=== PATIENT | female | born 1985 | race Caucasian/White ===

== ENCOUNTER 2020-11-16 09:46 | Emergency (ER) | payer OTHER ==
[~2020-11-16 09:46] MED LIST: KEFLEX250 MG PO
[2020-11-16 10:19] LABS: BILIRUBIN NEGATIVE (NEGATIVE); BLOOD 3+ Ery/uL (NEGATIVE); CLARITY CLEAR (CLEAR); COLOR YELLOW (YELLOW); GLUCOSE (U) NORMAL (NORMAL); LEUKOCYTES NEGATIVE Leu/uL (NEGATIVE); NITRITE NEGATIVE (NEGATIVE); PROTEIN NEGATIVE (NEGATIVE); SPECIFIC GRAVITY >=1.030 (1.001-1.030); UROBILINOGEN 0.2 mg/dL (0.2-1.0)
[2020-11-16 10:19] LABS: BASOPHIL 0.4 % (0-2); EOSINOPHIL 0.9 % (0-5); HCT 43.5 % (37.0-47.0); HGB 15.1 g/dl (12.5-16.0); LYMPHOCYTE 16.3 % (15-48); MCH 31.1 pg (25.0-31.0); MCHC 34.7 g/dL (32.0-36.0); MCV 89.7 fL (78.0-100.0); MPV 10.8 fL (6.0-9.5); NRBC 0; PLT 269 K/uL (150-400); RBC 4.85 M/uL (4.20-5.40); RDW 12.7 % (11.5-14.0); WBC 7.8 K/uL (4.0-10.5)
[2020-11-16 10:29] LABS: BACTERIA 1+; URINARY RBC 20-50
[2020-11-16 10:35] LABS: ALBUMIN 3.6 g/dL (3.4-5.0); BILIRUBIN - TOTAL 0.5 mg/dL (0.2-1.0); CREATININE 0.63 mg/dL (0.51-0.95); GLOBULIN (CALCULATION) 3.5 g/dL; POTASSIUM 3.5 mmol/L (3.5-5.1); TOTAL PROTEIN 7.1 g/dL (6.4-8.2)
[2020-11-16] MEDS ORDERED: NAPROXEN500 MG PO (12:53)
[2020-11-16] MEDS ORDERED: NORCO 5-325 TA1 EACH PO (12:53)
[2020-11-16] MEDS ORDERED: ZOFRAN4 M1 PO (12:53)
== END 2020-11-16 14:30 | disposition home or self-care (01) ==
LOC: FER 09:46
PROVIDERS: Emergency Medicine
DX: N80.9 Endometriosis, unspecified (principal); R10.12 Left upper quadrant pain; Z98.51 Tubal ligation status; Z98.890 Other specified postprocedural states
CPT/HCPCS: 36415; 80053; 81001; 82150; 83690; 85025; J1170; J1885; J2405; J7030; Q9967